=== PATIENT | female | born 1995 ===

== ENCOUNTER 2017-09-04 12:19 | Emergency (ER) | payer OTHER ==
[2017-09-04 12:27] VITALS: BP 124/79; PULSE 90; RESP 16; TEMP 99.1; O2SAT 100
--- NOTE | 2017-09-04 13:23 | C.PDOC ---
History Of Present Illness 21 year old female presents to the ED for evaluation of pain and swelling at the superior aspect of her left ear which began two days ago. Patient admits to prior episode of similar symptoms to her right side several years ago, and states the area required drainage/surgery. Patient denies fever, chills, discharge, cough, runny nose, sore throat. Time Seen by Provider: 09/04/17 12:26 Chief Complaint (Nursing): ENT Problem History Per: Patient History/Exam Limitations: None Onset/Duration Of Symptoms: Days (2) Quality (Ear): Pain W/Touch, Swelling. denies: Discharge Symptoms Have Been: Continuous Past Medical History Reviewed: Historical Data, Nursing Documentation, Vital Signs Vital Signs: Last Vital Signs Temp 99.1 F 09/04/17 12:26 Pulse 90 09/04/17 12:26 Resp 16 09/04/17 12:26 BP 124/79 09/04/17 12:26 Pulse Ox 100 09/04/17 17:58 - Medical History PMH: No Chronic Diseases Surgical History: No Surg Hx Family History: States: No Known Family Hx - Social History Hx Alcohol Use: No Hx Substance Use: No - Immunization History Hx Tetanus Toxoid Vaccination: No Hx Influenza Vaccination: No Hx Pneumococcal Vaccination: No Review Of Systems Constitutional: Negative for: Fever, Chills ENT: Positive for: Ear Pain (left with swelling ). Negative for: Ear Discharge , Nose Discharge, Throat Pain Respiratory: Negative for: Cough Skin: Negative for: Rash Neurological: Negative for: Headache, Dizziness Physical Exam - Physical Exam Appears: Well, Non-toxic, Other (in mild discomfort ) Skin: Normal Color, Warm, Dry, No Rash, Other (no vesicular lesions ) Head: Atraumatic, Normacephalic Eye(s): bilateral: Normal Inspection Ear(s): Right: Normal, Bilateral: Other (left: preauricular cyst with overlying erythema and swelling. no fluctuance noted right, healed surgical scar to preauricular area ) Nose: Normal, No Discharge Oral Mucosa: Moist Throat: Normal, No Erythema, No Exudate Neck: Supple Cardiovascular: Rhythm Regular Respiratory: Normal Breath Sounds, No Rales, No Rhonchi, No Wheezing Neurological/Psych: Oriented x3 ED Course And Treatment O2 Sat by Pulse Oximetry: 100 (on RA) Pulse Ox Interpretation: Normal Progress Note: Patient given Naproxen PO and Augmentin PO in ED. Rxs for same given. Patient instructed to follow up with ENT within 1 week, and understands she should return to ED if symptoms worsen. Reevaluation Time: 13:15 Reassessment Condition: Improved Disposition Counseled Patient/Family Regarding: Diagnosis, Need For Followup, Rx Given - Disposition Referrals: Butch Youssef MD [Staff Provider] - Disposition: HOME/ ROUTINE Disposition Time: 13:15 Condition: STABLE Additional Instructions: FOLLOW UP WITH ENT SPECIALIST WITHIN 1 WEEK USE ANTIBIOITICS UNTIL FINISHED APPLY WARM COMPRESSES TO AREA Prescriptions: Amoxicillin/Clavulanate [Augmentin 875 MG-125 MG] 1 tab PO BID #14 tab Naproxen 375 mg PO BID PRN #20 tablet PRN Reason: pain Forms: [facility] (Swedish) Print Language: BULGARIAN - Clinical Impression Clinical Impression: Preauricular cyst, Preauricular cellulitis - Scribe Statement The provider has reviewed the documentation as recorded by the Scribe (Rose Mary Yeboah) Provider Attestation: All medical record entries made by the Scribe were at my direction and personally dictated by me. I have reviewed the chart and agree that the record accurately reflects my personal performance of the history, physical exam, medical decision making, and the department course for this patient. I have also personally directed, reviewed, and agree with the discharge instructions and disposition.
[2017-09-04] MEDS: Naproxen 550 mg Tab PO STA (13:24)
[2017-09-04] MEDS: Amoxicillin-Clav 875-125 mg Tab PO STA (13:24)
[2017-09-04] MEDS ORDERED: Naproxen 550 mg Tab PO ONE (13:25)
[2017-09-04] MEDS ORDERED: Amoxicillin-Clav 875-125 mg Tab PO ONE (13:25)
== END 2017-09-04 13:28 | disposition home or self-care (01) ==
LOC: C.ER 12:19
DX: Q18.1 Preauricular sinus and cyst (principal); H60.12 Cellulitis of left external ear